=== PATIENT | female | born 1945 | race Caucasian/White ===

== ENCOUNTER 2020-05-01 10:07 | Outpatient (CLI) | payer OTHER, SELFPAY ==
--- NOTE | ~2020-05-01 | CT_ITS ---
EXAMINATION: CT lung screening EXAM DATE: 05/01/2020 11:29 INDICATION: Personal history of nicotine dependence. TECHNIQUE: Spiral low dose CT of the chest without contrast. Axial, coronal and sagittal images were reviewed. The dose-length product (DLP) for this examination was 66.49 mGy-cm. The exposure was ta ilored according to patient size (auto mA exposure control), and iterative reconstruction (ASIR) was used as additional dose reduction technique. Comparison is made to prior examination from 04/27/2019. FINDINGS: Multiple scattered upper lobe punctate noncalcified nodules likely postinfectious. Small amount of subsolid density material in right lower lobe posterior segmental bronchus without postobst ructive atelectasis, probably debris. There is no mediastinal, hilar or axillary lymphadenopathy. There are no pleural or pericardial effusions. There is no pneumothorax. Heart normal in size. There is mild to moderate coronary arterial calcification, arterial sclerosis. Upper abdomen is unrem arkable. There is mild thoracic spondylosis without osteoblastic or osteolytic lesions identified. Mild to moderate thoracolumbar levoscoliosis. IMPRESSION: Lung-RADS category 2, benign appearance or behavior (<1% chance of malignancy); recommend continued LDCT screening in 1 year. Reviewed, dictated and finalized at location A. SHOVELER
== END 2020-05-01 10:08 | disposition home or self-care (01) ==
PROVIDERS: PCP Internal Medicine; Visit Provider Internal Medicine
DX: Z87.891 Personal history of nicotine dependence (principal)
CPT/HCPCS: G0297

== ENCOUNTER 2021-10-21 15:36 | Emergency (ER) | payer OTHER, SELFPAY ==
--- NOTE | ~2021-10-21 | XR_ITS ---
XR foot RT min 3V DATE: 10/21/2021 16:00 INDICATION: Right foot pain at first and second metatarsal area. No injury. TECHNIQUE: 4 views COMPARISON: August 06, 2019 FINDINGS: Mild plantar calcaneal enthesopathy. Mild hallux valgus and bunion deformity. There is chronic deformity of the head of the proximal phalanx of the second digit with interval incr eased secondary osteoarthritic change of the proximal interphalangeal joint. No fracture or dislocation, periosteal reaction or bone destruction is detected. Osteopenia. IMPRESSION: Hallux valgus and bunion deformity Chronic deformity of head of proximal phalanx of second digit with associated increased secondary ost eoarthritic change at the proximal interphalangeal joint of the second digit Osteopenia Reviewed, dictated and finalized at location B. IMPRESSION: Hallux valgus and bunion deformity Chronic deformity of head of proximal phalanx of second digit with associated i ncreased secondary osteoarthritic change at the proximal interphalangeal joint of the second digit Osteopenia
[2021-10-21 15:45] VITALS: BP 141/72; PULSE 75; RESP 16; TEMP 36.4; O2SAT 96
--- NOTE | 2021-10-21 15:51 | ED.EXTPRO ---
HPI - Extremity Problem General Chief complaint: Extremity Problem,Nontraumatic Stated complaint: Rt Foot Pain Time Seen by Provider: 10/21/21 15:45 Source: patient, family, RN notes reviewed and old records reviewed Mode of arrival: ambulatory Limitations: no limitations History of Present Illness HPI Narrative: 75-year-old female presents to the [facility] with complaints of right foot/arch pain that started earlier today. Has history of foot discomfort and has seen Dr. Wolfe in the past for her toe. Patient denies any trauma. Wrapped it with some Coban and placed in a postop shoe she had on. Tender to palpation in the arch. No open wounds, redness or swelling noted. Positive pedal pulse. Sensation intact in all 5 toes Related Data Home Medications Medication Instructions Recorded Confirmed amlodipine 2.5 mg PO DAILY 10/21/21 10/21/21 lwhwvxjtmhd-ivxpsvaad-ljjfzgbe 2 inh INHALATION DAILY 10/21/21 10/21/21 [Trelegy Ellipta] meloxicam 15 mg PO DAILY 10/21/21 10/21/21 sertraline 100 mg PO DAILY 10/21/21 10/21/21 tramadol 50 mg PO PRN PRN 10/21/21 10/21/21 valsartan-hydrochlorothiazide 1 tablet PO DAILY 10/21/21 10/21/21 Allergies Allergy/AdvReac Type Severity Reaction Status Date / Time codeine Allergy Unknown Unknown Verified 10/21/21 15:43 Review of Systems Review of Systems: All systems reviewed & are unremarkable except as noted in HPI and below Constitutional: Constitutional: Reports no additional constitutional complaints, Denies chills and Denies fever(s) Eyes: Eyes: Reports no additional eye complaints ENT: Reports system reviewed and no additional complaints, except as documented Cardiovascular: Cardiovascular: Reports no additional cardiovascular complaints Respiratory: Respiratory: Reports no additional respiratory complaints Musculoskeletal: Musculoskeletal: Reports as per HPI Comments: Right plantar foot pain Integumentary/Breasts: Skin/Breast: Reports system reviewed and no additional complaints, except as docu Neurologic: Reports system reviewed and no additional complaints, except as documented Psychiatric: Psychiatric: Reports no additional psychiatric complaints Allergic/Immunologic: Allergic/Immunologic: Reports no additional allergic/immunologic complaints PMFSH Past Medical History Medical History Hallux valgus (acquired), right foot Hammertoe of second toe of right foot Family History Family History Mother Family history of lung cancer Sibling Acute myocardial infarction Other Hypertension Social History Social History Smoking status: Smoker, status unknown Alcohol intake: never Comments At the time of my signature, I reviewed and agree with the nursing past medical, surgical, social, and family history. There is no relevant family history pertinent to the patient complaint. Exam Const: General: healthy appearing, no acute distress and alert Nutritional Appearance: well nourished Orientation/consciousness: patient oriented x3 Limitations: no limitations HENMT: Head: normal to inspection Ears: external ears normal Eyes: Pupils: Equal, round and reactive pupils present Neck: Neck: normal visual inspection, no lymphadenopathy and no meningeal signs Chest: Chest palpation & inspection: normal inspection of the chest Resp: Effort & Inspection: normal respiratory effort and no use of accessory muscles Auscultation: clear to auscultation bilaterally, no crackles, no rales, no rhonchi and no wheezes Cardio: Rate: regular rate Rhythm: regular rhythm Back/Spine/Pelvis: Cervical Spine: normal cervical lordosis Skin: General skin exam: normal color Rashes: no rashes Wounds: no wounds Neuro: General: patient oriented x3, moves all extremities, no meningeal signs and no focal motor deficits C
== END 2021-10-21 16:26 | disposition home or self-care (01) ==
PROVIDERS: Emergency Provider Nurse Practitioner; PCP Internal Medicine
DX: M79.671 Pain in right foot (principal); I10 Essential (primary) hypertension; J44.9 Chronic obstructive pulmonary disease, unspecified; M19.90 Unspecified osteoarthritis, unspecified site; F41.9 Anxiety disorder, unspecified; F32.A Depression, unspecified
CPT/HCPCS: 73630; 99213; G0463

== ENCOUNTER → 2022-08-10 10:19 | Outpatient (CLI) | payer OTHER, SELFPAY ==
--- NOTE | ~2022-08-10 | DEXA_ITS ---
Bone Density Report Name: RAFITA ALMANZA Age: 76 Sex: Female Ethnicity: White Date of : 1945 Indication: postmenopausal; screening for osteoporosis; height loss; hysterectomy; Referring Provider: RAYNE SANABRIA Study: Bone densitometry was performed. Exam Date: August 10, 2022 Accession number: [id number] Bone Density: Region BMD T-score Z-score Classification AP Spine (L1, L2) 0.773 -1.9 0.4 Osteopenia Femoral Neck (Left) 0.618 -2.1 0.0 Osteopenia Total Hip (Left) 0.778 -1.3 0.5 Osteopenia Femoral Neck (Right) 0.617 -2.1 0.0 Osteopenia Total Hip (Right) 0.746 -1.6 0.2 Osteopenia Total Hip Mean 0.762 -1.5 0.4 Osteopenia World Health Organization criteria for BMD impression classify patients as: Normal (T-score at or above -1.0), Osteopenia (T-score between -1.0 and -2.5), or Osteoporosis (T-score at or below -2.5). 10-year Fracture Risk(1): Major Osteoporotic Fracture 15% Hip Fracture 5.8% Reported Risk Factors: [place] (), Neck BMD=0.617, BMI=26.5, smoking (1) FRAX(R) Version 3.08. Fracture probability calculated for an untreated patient. Fracture probability may be lower if the patient has received treatment. Clinical Information Provided by Patient: Smokes Has used the following medications: Vitamin D Has the following medical conditions: Hysterectomy Patient maximum height was 64 Menopause Age: 35 Does not regularly consume dairy products Drinks caffeinated beverages Onset of menses at age 14 Number of children 3 Impression: The patient has low bone mass, based on the Left Femoral Neck T-score. The patient has an estimated ten-year risk of hip fracture of 5.8% and an estimated ten-year risk of major fracture of 15%, based on the WHO FRAX algorithm. The patient has risk factors, including: smoking. Discussion: BONE DENSITY IS LOW AT ONE OR MORE SKELETAL SITES. THE PATIENT'S BMD AND CLINICAL RISK FACTORS CONTRIBUTE TO THIS PATIENT'S INCREASED RISK OF FRACTURE. This patient's lowest T-score is low at one or more skeletal sites. It meets the World Health Organization's (WHO) criteria for ?low bone mass? (T-score between -1.0 and -2.5). The patient's 10-year risk of hip fracture as calculated by FRAX exceeds the threshold where pharmacological therapy is recommended by the National Osteoporosis Foundation (NOF). However, all treatment decisions require clinical judgment and consideration of individual patient factors, including patient preferences, comorbidities, previous drug use, risk factors not captured in the FRAX model (e.g., frailty, falls, vitamin D deficiency, increased bone turnover, interval significant decline in bone density) and possible under or overestimation of fracture risk by FRAX. The patient should follow a healthful lifestyle (good nutrition with ad
--- NOTE | ~2022-08-10 | CT_ITS ---
EXAMINATION: CT lung screening DATE: 08/10/2022 10:44 INDICATION: Tobacco use TECHNIQUE: Computed tomography (CT) of the chest was performed without intravenous contrast. The dose -length product was 66.75 mGy-cm. Automated exposure control and iterative reconstruction technique w ere employed. COMPARISON: Comparison to multiple prior studies sequentially, with oldest reviewed study dated 04/27/2019. FINDINGS: There are innumerable bilateral pulmonary nodules predominantly upper lobe, measuring 3 mm or less. No endobronchial lesions. No pneumothorax. No thoracic lymphadenopathy. Mild atherosclerosis . There is a 2.5 cm left renal cyst. There are cholecystectomy clips. No significant pleural or peric ardial effusion. No pneumothorax. There is levoscoliosis. Moderate lumbar spondylosis. No focal airsp dank consolidation. No focal lytic or blastic lesions. IMPRESSION: 1. Lung-RADS category 2: Benign appearance or behavior. Continue annual screening with noncontrast lo w-dose chest CT in 12 months. Reviewed, dictated and finalized at location B. EXAMINER IMPRESSION: 1. Lung-RADS category 2: Benign appearance or behavior. Continue annual screeni ng with noncontrast low-dose chest CT in 12 months.
== END ==
PROVIDERS: PCP Internal Medicine
DX: Z12.2 Encounter for screening for malignant neoplasm of respiratory organs (principal); F17.210 Nicotine dependence, cigarettes, uncomplicated; M81.0 Age-related osteoporosis without current pathological fracture; M85.88 Other specified disorders of bone density and structure, other site; M85.852 Other specified disorders of bone density and structure, left thigh; M85.851 Other specified disorders of bone density and structure, right thigh
CPT/HCPCS: 71271; 77080

== ENCOUNTER 2023-10-16 12:44 | Outpatient (CLI) | payer OTHER, SELFPAY | END 2023-10-16 12:45 | disposition home or self-care (01) | LOC: ANHAUDIO 12:45 | PROVIDERS: PCP Internal Medicine; Visit Provider Internal Medicine | DX: H90.6 Mixed conductive and sensorineural hearing loss, bilateral (principal) | CPT/HCPCS: 92557; 92567 ==

== ENCOUNTER 2023-11-14 09:00 | Outpatient (RCR) | payer OTHER, SELFPAY | END 2023-11-14 23:59 | disposition home or self-care (01) | LOC: ANHAUDIO 09:00 | PROVIDERS: PCP Internal Medicine | DX: Z46.1 Encounter for fitting and adjustment of hearing aid (principal) | CPT/HCPCS: 99199; V5221 ==

== ENCOUNTER 2024-12-09 08:17 | Outpatient (RCR) | payer SELFPAY | END 2024-12-09 23:59 | disposition home or self-care (01) | LOC: ANHAUDIO 08:17 | PROVIDERS: PCP Internal Medicine; Visit Provider Internal Medicine | DX: Z46.1 Encounter for fitting and adjustment of hearing aid (principal) | CPT/HCPCS: V5014 ==

== ENCOUNTER 2025-05-06 13:00 | Outpatient (RCR) | payer SELFPAY | END 2025-05-06 23:59 | disposition home or self-care (01) | LOC: ANHAUDIO 13:00 | PROVIDERS: PCP Internal Medicine; Visit Provider Internal Medicine | DX: Z46.1 Encounter for fitting and adjustment of hearing aid (principal) | CPT/HCPCS: 99199; V5014 ==